=== PATIENT | male | born 1945 | race Two or more races ===

== ENCOUNTER 2023-10-13 04:58 | Emergency (ER) | payer OTHER ==
[~2023-10-13] VITALS: Ht 175.3 cm; Wt 74.8 kg
[2023-10-13] MEDS ORDERED: GLIMEPIRIDE1 MG (05:06)
[2023-10-13] MEDS ORDERED: VASOTEC2.5 MG PO (05:06)
[2023-10-13] MEDS ORDERED: FOLIC ACID0.8 M1 (05:07)
[2023-10-13 05:35] LABS: HEMATOCRIT 47.3 % (39.0-48.0); HEMOGLOBIN 15.6 g/dL (13-16.00); MEAN CELL VOLUME 94.5 fL (80.0-100.00); MEAN CORPUSCULAR HEMOGLOBIN 31.2 pg (27.00-32.0); PLATELET COUNT 157 K/uL (150-450); RED CELL DISTRIBUTION WIDTH 14.5 % (11.5-14.5)
[2023-10-13 05:54] LABS: INR 1.05; PARTIAL THROMBOPLASTIN TIME 31.6 SECONDS (22.0-34.0)
[2023-10-13 06:02] LABS: ALBUMIN 3.3 gm/dL (3.4-5.0); BILIRUBIN TOTAL 0.44 mg/dL (0.3-1.2); CALCIUM 8.2 mg/dL (8.5-10.1); CREATININE SERUM 1.86 mg/dL (0.70-1.30); GFR 35.22; GLOBULINA 4.5 G/DL (2.4-3.5); POTASSIUM 4.17 mEq/L (3.5-5.1); TOTAL PROTEIN 7.8 gm/dL (6.4-8.2)
[2023-10-13 07:00] LABS: PH,URINE 5.5 (5.0-8.0); URINE APPEARANCE Clear; URINE BILIRRUBIN Negative (NEGATIVE); URINE BLOOD Small; URINE COLOR Yellow; URINE LEUKOCYTE Negative; URINE NITRATE Negative; URINE UROBILINOGEN 0.2 E.U./dl
[2023-10-13 07:02] LABS: URINE EPITHELIAL CELLS 2.1 uL (0.0-38.8); URINE WBC 2.3 uL (0.0-23.2)
[2023-10-13 07:23] LABS: URINE GLUCOSE 100 MG/DL (NEGATIVE); URINE PROTEIN 100 (NEGATIVE); URINE RBC 0.8 uL (0.0-20.8)
== END 2023-10-13 09:23 | disposition home or self-care (01) ==
LOC: ER 04:58
PROVIDERS: General Practice
DX: J10.1 Influenza due to other identified influenza virus with other respiratory manifestations (principal); R53.1 Weakness; E11.649 Type 2 diabetes mellitus with hypoglycemia without coma; Z79.84 Long term (current) use of oral hypoglycemic drugs; I10 Essential (primary) hypertension
CPT/HCPCS: 36415; 70450; 93005; 96365; 99284; J7070